=== PATIENT | male | born 1990 | race African-American/Black ===

== ENCOUNTER 2016-10-09 10:04 | Emergency (ER) | payer OTHER ==
[~2016-10-09] VITALS: Ht 175.3 cm; Wt 57.6 kg
[~2016-10-09 10:04] MED LIST: ACCUNEB SO1.25 MG/1 INH; DUONEB 2.5-0.5 M3 ML INH; FLOVENT HFA 1110 MCG; IBUPROFEN 600600 M1 PO; NORCO 5-325 TA1 EACH PO; PREDNISONE 20 M20 MG PO; SINGULAIR 10 MG10 M1 PO; VENTOLIN HFA 1818 GM INH
[2016-10-09] MEDS ORDERED: ACCUNEB SO1.25 MG/1 INH (10:37)
[2016-10-09] MEDS ORDERED: PREDNISONE 20 M20 MG PO ×2 (10:37→11:58)
[2016-10-09] MEDS ORDERED: VENTOLIN HFA 1818 GM INH (11:58)
[2016-10-09 12:00] VITALS: BP 120/61
== END 2016-10-09 12:00 | disposition home or self-care (01) ==
LOC: ER 10:04
DX: J45.901 Unspecified asthma with (acute) exacerbation (principal); F17.210 Nicotine dependence, cigarettes, uncomplicated; F10.99 Alcohol use, unspecified with unspecified alcohol-induced disorder

== ENCOUNTER 2016-11-08 20:23 | Emergency (ER) | payer OTHER ==
[~2016-11-08] VITALS: Ht 175.3 cm; Wt 59.0 kg
[2016-11-08] MEDS ORDERED: VENTOLIN HFA 1818 GM INH (21:48)
[2016-11-08] MEDS ORDERED: PREDNISONE 20 M20 MG PO (21:48)
[2016-11-08 21:51] VITALS: BP 127/66
== END 2016-11-08 21:56 | disposition home or self-care (01) ==
LOC: ER 20:23
DX: J45.901 Unspecified asthma with (acute) exacerbation (principal); F17.210 Nicotine dependence, cigarettes, uncomplicated

== ENCOUNTER 2018-07-23 09:16 | Emergency (ER) | payer OTHER ==
[~2018-07-23] VITALS: Ht 177.8 cm; Wt 63.5 kg
[2018-07-23 09:48] LABS: ABSOLUTE NEUTROPHILS 4.9 thou/uL (1.4-8.2); BASOPHILS 0.5 % (0.0-2.0); EOSINOPHILS 6.1 % (0.0-3.0); HEMOGLOBIN 14.2 gm/dL (14.0-18.0); LYMPHOCYTES 24.7 % (24.0-44.0); MCH 30.3 pg (26.0-34.0); MCHC 33.1 g/dL (28.0-37.0); MCV 91.5 fL (80.0-100.0); MONOCYTES 6.2 % (1.0-8.0); PLATELET COUNT 264 thou/uL (150-400); POLYS 62.5 % (36.0-66.0); RDW 12.7 % (10.5-14.5); WBC 7.8 thou/uL (4.0-11.0)
[2018-07-23 10:01] LABS: CALCIUM 9.1 mg/dL (8.5-10.1); CREATININE 1.1 mg/dL (0.7-1.3)
[2018-07-23 10:07] LABS: ALBUMIN 4.2 g/dL (3.4-5.0); MAGNESIUM 1.8 mg/dL (1.8-2.4); TOTAL PROTEIN 7.6 g/dL (6.4-8.2)
[2018-07-23] MEDS ORDERED: PREDNISONE 20 M20 MG PO (10:38)
[2018-07-23] MEDS ORDERED: PROAIR HFA8.5 GM INH (10:38)
[2018-07-23 11:18] VITALS: BP 130/71
== END 2018-07-23 11:26 | disposition home or self-care (01) ==
LOC: ER 09:16
PROVIDERS: Emergency Medicine
DX: J45.901 Unspecified asthma with (acute) exacerbation (principal); Z77.22 Contact with and (suspected) exposure to environmental tobacco smoke (acute) (chronic)